=== PATIENT | female | born 1995 | race Caucasian/White ===

== ENCOUNTER 2025-09-29 16:42 | Emergency (ER) | payer OTHER ==
[~2025-09-29] VITALS: Wt 104.3 kg
[~2025-09-29 16:42] MED LIST: MOTRIN400 MG PO
[2025-09-29 17:11] VITALS: BP 128/86
== END 2025-09-29 19:20 | disposition home or self-care (01) ==
LOC: ED 16:42
DX: S96.911A Strain of unspecified muscle and tendon at ankle and foot level, right foot, initial encounter (principal); Z98.890 Other specified postprocedural states; V49.49XA Driver injured in collision with other motor vehicles in traffic accident, initial encounter; Y93.I9 Activity, other involving external motion; Y92.488 Other paved roadways as the place of occurrence of the external cause; Y99.8 Other external cause status